=== PATIENT | female | born 1985 | race Caucasian/White ===

== ENCOUNTER 2022-10-15 04:22 | Day surgery (SDC) | payer OTHER ==
--- NOTE | 2022-10-15 04:56 | ED Physician Documentation ---
History of Present Illness - Stated complaint Stated Complaint: NAUSEA,FEVER,CRAMPING - Chief complaint Chief Complaint: Abd Pain - History obtained from History obtained from: Patient - History of Present Illness Timing: Enter time (03:30), Today Pain level now: 6 Improved by: no ameliorating factors Worsened by: no exacerbating factors - Additonal information Additional information: woke from sleep approximately 3:30 this morning with suprapubic cramping pain, waxing and waning without exacerbating or ameliorating factors. She denies h/of similar symptoms. She is approximately 4 weeks , primagravida. Denies vaginal bleeding. Had near-syncopal episode at home [employer] with lightheadedness, diaphoresis, generalized weakness, felt like she was going to pass out. She arrives by private vehicle (was driven to ED) Review of Systems Constitutional: reports: Sweats. denies: Fever, Chills Cardiac: reports: Reviewed and negative Respiratory: reports: Reviewed and negative GI: reports: Abdominal Pain, Nausea, Vomiting : reports: Now EGA (4 weeks). denies: Dysuria, Frequency, Vaginal bleeding PD PAST MEDICAL HISTORY - Past Medical History Past Medical History: No - Past Surgical History Past Surgical History: Yes HEENT: Tonsil/Adenoidectomy - Present Medications Home Medications: Ambulatory Orders Medication Instructions Recorded Confirmed Vit No.130/Iron/Folic 1 tab PO DAILY 10/15/22 10/15/22 [ Tablet] - Allergies Allergies/Adverse Reactions: Allergies Allergy/AdvReac Type Severity Reaction Status Date / Time No Known Drug Allergies Allergy Verified 10/15/22 04:41 - Social History Does the pt smoke?: No Smoking Status: Never smoker Does the pt drink ETOH?: No Does the pt have substance abuse?: No - Immunizations Immunizations are current?: Yes - POLST Patient has POLST: No PD ED PE NORMAL - Vitals Vital signs reviewed: Yes - General General: Alert and oriented X 3, Well developed/nourished, Other (appears apprehensive) - HEENT HEENT: Moist mucous membranes - Cardiac Cardiac: RRR, No murmur - Respiratory Respiratory: No respiratory distress, Clear bilaterally - Abdomen Abdomen: Soft, Non distended, Other (TTP across lower abdomen) - Back Back: No CVA TTP - Derm Derm: Normal color, Warm and dry Results - Vitals Vitals: Vital Signs - 24 hr 10/15/22 10/15/22 10/15/22 04:35 05:16 06:30 Temperature 36.6 C 36.8 C Heart Rate 72 66 67 Respiratory 20 16 18 Rate Blood Pressure 103/81 H 111/87 H 114/79 O2 Saturation 100 100 100 Oxygen O2 Source Room air - Labs Labs: Laboratory Tests 10/15/22 10/15/22 10/15/22 04:55 04:55 04:55 WBC 7.8 RBC 4.25 Hgb 12.5 Hct 38.0 MCV 89.4 MCH 29.4 MCHC 32.9 RDW 13.5 Plt Count 252 MPV 11.7 H Neut # (Auto) 5.2 Lymph # (Auto) 1.9 [place] # (Auto) 0.4 Eos # (Auto) 0.2 Baso # (Auto) 0.1 Absolute Nucleated RBC 0.00 Nucleated RBC % 0.0 Sodium 135 Potassium 3.4 L Chloride 100 L Carbon Dioxide 23 Anion Gap 12.0 BUN 13 Creatinine 0.7 Estimated GFR (MDRD) 95 Glucose 143 H Calcium 9.3 Total Bilirubin 0.6 AST 16 ALT 16 Alkaline Phosphatase 49 Total Protein 7.8 Albumin 4.1 Globulin 3.7 Albumin/Globulin Ratio 1.1 Lipase 40 HCG, Quant 82413.00 SARS-CoV-2 (PCR) Blood Type Blood Type Recheck Antibody Screen Crossmatch IS Only 10/15/22 10/15/22 10/15/22 07:09 07:09 07:38 WBC RBC Hgb 11.6 L Hct 34.3 L MCV MCH MCHC RDW Plt Count MPV Neut # (Auto) Lymph # (Auto) [place] # (Auto) Eos # (Auto) Baso # (Auto) Absolute Nucleated RBC Nucleated RBC % Sodium Potassium Chloride Carbon Dioxide Anion Gap BUN Creatinine Estimated GFR (MDRD) Glucose Calcium Total Bilirubin AST ALT Alkaline Phosphatase Total Protein Albumin Globulin Albumin/Globulin Ratio Lipase HCG, Quant SARS-CoV-2 (PCR) NOT DETECTED Blood Type A POSITIVE Blood Type Recheck Antibody Screen NEGATIVE Crossmatch IS Only See Detail 10/15/22 07:49 WBC RBC Hgb Hct MCV MCH MCHC RDW Plt Count MPV Neut # (Auto) Lymph # (Auto) [place] # (Auto) Eos # (Auto) Baso # (Auto) Absolute Nucleated RBC Nucleated RBC % Sodium Potassium Chloride Carbon Dioxide Anion Gap BUN Creatinine Estimated GFR (MDRD) Glucose Calcium Total Bilirubin AST ALT Alkaline Phosphatase Total Protein Albumin Globulin Albumin/Globulin Ratio Lipase HCG, Quant SARS-CoV-2 (PCR) Blood Type Blood Type Recheck A POSITIVE Antibody Screen Crossmatch IS Only - Rads (name of study) first trimester US Radiology: Prelim report reviewed, See rad report PD MEDICAL DECISION MAKING - ED course Complexity details: reviewed results, re-evaluated patient, considered differential, d/w patient ED course: Serum HCG is over 32,000 but no IUP seen on ultrasound. Ultrasound does show free fluid in upper quadrants and probably blood within pelvis, findings are worrisome for ectopic . I discussed these results with Dr. Cristina, will take patient to OR. Patient is type/crossed for two units PRBC. - Critical Care Time(min): 45 Time Includes: Direct patient care, Reassess patient, Document care, Coordinate care, Medical consult, See progress note Data interpretation: Labs, See progress note Procedures included in critical care time: See progress note Procedures excluded from critical care time: See progress note Departure - Departure Disposition: ED Transfer to [facility] Clinical Impression: Ectopic Qualifiers: Location of ectopic : unspecified location Intrauterine status: without intrauterine Qualified Code(s): O00.90 - Unspecified ectopic without intrauterine Condition: Fair Discharge Date/Time: 10/15/22 08:00
[2022-10-15 05:08] LABS: BASOPHILS # (AUTO) 0.1 10^3/uL (0.0-0.1); BASOPHILS % (AUTO) 0.9 %; EOSINOPHILS # (AUTO) 0.2 10^3/uL (0.0-0.7); EOSINOPHILS % (AUTO) 2.1 %; HGB - HEMOGLOBIN 12.5 g/dL (12.0-16.0); LYMPHOCYTES # (AUTO) 1.9 10^3/uL (1.5-3.5); LYMPHOCYTES % (AUTO) 24.1 %; MEAN CORPUSCULAR HEMOGLOBIN 29.4 pg (27.0-31.0); MEAN CORPUSCULAR HGB CONC 32.9 g/dL (32.0-36.0); MEAN CORPUSCULAR VOLUME 89.4 fL (81.0-99.0); MEAN PLATELET VOLUME 11.7 fL (7.9-10.8); MONOCYTES # (AUTO) 0.4 10^3/uL (0.0-1.0); MONOCYTES % (AUTO) 5.7 %; NEUTROPHILS # (AUTO) 5.2 10^3/uL (1.5-6.6); NEUTROPHILS % (AUTO) 66.8 %; PLT - PLATELET COUNT 252 10^3/uL (130-450); RED BLOOD COUNT 4.25 10^6/uL (4.20-5.40); RED CELL DISTRIBUTION WIDTH 13.5 % (12.0-15.0); WHITE BLOOD COUNT 7.8 x10^3/uL (4.8-10.8)
[2022-10-15] MEDS ORDERED: ACETAMINOPHEN 1,000 MG/100 ML 1,000 MG/100 ML BAG IV STA (05:13)
[2022-10-15 05:21] LABS: ALBUMIN 4.1 g/dL (3.2-5.5); ALBUMIN/GLOBULIN RATIO 1.1 (1.0-2.2); BILIRUBIN,TOTAL 0.6 mg/dL (0.2-1.0); CALCIUM 9.3 mg/dL (8.5-10.3); CREATININE 0.7 mg/dL (0.4-1.0); POTASSIUM 3.4 mmol/L (3.5-5.0); TOTAL PROTEIN 7.8 g/dL (6.7-8.2)
[2022-10-15] MEDS ORDERED: SODIUM CHLORIDE 0.9% 1,000 ML IV STA ×2 (05:29→05:33)
[2022-10-15] MEDS ORDERED: ONDANSETRON 4 MG/2 ML VIAL IVP STA ×2 (05:30→05:33)
[2022-10-15] MEDS ORDERED: ONDANSETRON 4 MG/2 ML VIAL ONE ×2 (05:32→13:01)
[2022-10-15] MEDS ORDERED: LIDOCAINE MPF 2%-EPI 1:200000 20 ML VIAL ONE (07:16)
[2022-10-15] MEDS ORDERED: BUPIVACAINE 0.25% PF 10 ML VIAL ONE (07:17)
[2022-10-15] MEDS ORDERED: PROPOFOL 200 MG/20 ML VIAL IVP ONE (07:24)
[2022-10-15] MEDS ORDERED: ROCURONIUM 50 MG/5 ML VIAL ONE ×2 (07:25→08:32)
[2022-10-15] MEDS ORDERED: MIDAZOLAM 2 MG/2 ML VIAL ONE (07:26)
[2022-10-15] MEDS ORDERED: CEFAZOLIN 2G/50ML 0.9% NS 2 GM/50 ML BAG IV ONE (07:34)
--- NOTE | 2022-10-15 07:37 | HISTORY & PHYSICAL EXAMINATION ---
HPI - Admitted From Admitted from: ED - History Obtained From History obtained from: Patient Exam limitations: Clinical condition - History of Present Illness Severity at the worst: reports: Severe Pain Quality: reports: Sharp, Aching, Cramping Timing: reports: Abrupt onset Duration: reports: Hours: (4) Improved with: reports: Nothing Worsened by: reports: Movement HPI Comment/Other: 37yo ~4w by LMP 09/11/22 presented to ED this morning with her maddie Valdovinos after severe pain waking her from sleep ~0300. HCG 38,291. Verbal US report shows no IUP and hemoperitoneum. NKDA Meds: prenatals Med: denies Surg: wisdom, tonsils Fam: noncontributory Social: , self and AD, denies ENMANUEL PMH/PSH - Past Medical History MRSA Hx?: No - Past Surgical History HEENT: positive: Tonsil/Adenoidectomy Social & Family Hx - Living Situation Living Arrangement: At home Living Situation: With spouse/s.o. - Social History Does the pt smoke?: No Smoking Status: Never smoker Does the pt drink ETOH?: No Does the pt have substance abuse?: No - POLST Patient has POLST: No Meds/Allgy - Home Medications Home Medications: Ambulatory Orders Medication Instructions Recorded Confirmed Vit No.130/Iron/Folic 1 tab PO DAILY 10/15/22 10/15/22 [ Tablet] - Allergies Allergies/Adverse Reactions: Allergies Allergy/AdvReac Type Severity Reaction Status Date / Time No Known Drug Allergies Allergy Verified 10/15/22 04:41 Review of Systems - Gastrointestinal Gastrointestinal: reports: Abdominal pain - All Other Systems All Other Systems: reports: Reviewed and negative Exam - Vital Signs Reviewed Vital Signs: Yes Vital Signs: Vital Signs x48h Temp Pulse Resp BP Pulse Ox 10/15/22 06:30 98.2 F 67 18 114/79 100 10/15/22 05:16 66 16 111/87 H 100 10/15/22 04:35 97.8 F 72 20 103/81 H 100 - Physical Exam General Appearance: positive: No acute distress Abdomen: positive: Tenderness, Guarding, Rebound Skin: positive: Color nml Extremities: positive: Non-tender Neurologic/Psychiatric: positive: Oriented x3 Results - Lab Results Fish Bones: 10/15/22 04:55 10/15/22 04:55 Other Lab Results: Lab Results x24hrs 10/15/22 10/15/22 10/15/22 Range/Units 04:55 04:55 04:55 WBC 7.8 (4.8-10.8) x10^3/uL RBC 4.25 (4.20-5.40) 10^6/uL Hgb 12.5 (12.0-16.0) g/dL Hct 38.0 (37.0-47.0) % MCV 89.4 (81.0-99.0) fL MCH 29.4 (27.0-31.0) pg MCHC 32.9 (32.0-36.0) g/dL RDW 13.5 (12.0-15.0) % Plt Count 252 (130-450) 10^3/uL MPV 11.7 H (7.9-10.8) fL Neut # (Auto) 5.2 (1.5-6.6) 10^3/uL Lymph # (Auto) 1.9 (1.5-3.5) 10^3/uL [place] # (Auto) 0.4 (0.0-1.0) 10^3/uL Eos # (Auto) 0.2 (0.0-0.7) 10^3/uL Baso # (Auto) 0.1 (0.0-0.1) 10^3/uL Absolute Nucleated RBC 0.00 x10^3/uL Nucleated RBC % 0.0 /100WBC Sodium 135 (135-145) mmol/L Potassium 3.4 L (3.5-5.0) mmol/L Chloride 100 L (101-111) mmol/L Carbon Dioxide 23 (21-32) mmol/L Anion Gap 12.0 (6-13) BUN 13 (6-20) mg/dL Creatinine 0.7 (0.4-1.0) mg/dL Estimated GFR (MDRD) 95 (>89) Glucose 143 H (70-100) mg/dL Calcium 9.3 (8.5-10.3) mg/dL Total Bilirubin 0.6 (0.2-1.0) mg/dL AST 16 (10-42) IU/L ALT 16 (10-60) IU/L Alkaline Phosphatase 49 (42-121) IU/L Total Protein 7.8 (6.7-8.2) g/dL Albumin 4.1 (3.2-5.5) g/dL Globulin 3.7 (2.1-4.2) g/dL Albumin/Globulin Ratio 1.1 (1.0-2.2) Lipase 40 (22-51) U/L HCG, Quant 50842.00 mIU/mL - Diagnostic Imaging Results Diagnostic Imaging Results Comments: Hemoperitoneum, no IUP Impression/Plan - Problem List Problem List: 37yo with right sided ectopic , ruptured, hemoperitoneum - To OR for laparopscopy, informed consent obtained - Plan for outpatient surgery
[2022-10-15 07:43] LABS: HCT - HEMATOCRIT 34.3 % (37.0-47.0); HGB - HEMOGLOBIN 11.6 g/dL (12.0-16.0)
[2022-10-15] MEDS ORDERED: fentaNYL 100 MCG/2 ML VIAL ONE ×2 (07:43→08:31)
--- NOTE | 2022-10-15 07:48 | ANESTHESIA ---
Pre-Anesthesia VS, & Labs - Diagnosis ectopic - Procedure treatment of ectopic , laparoscopic Vital Signs: Temp Pulse Resp BP Pulse Ox O2 Flow Rate 36.8 C 67 18 114/79 100 10/15/22 06:30 10/15/22 06:30 10/15/22 06:30 10/15/22 06:30 10/15/22 06:30 Height: 5 ft 11 in Weight (kg): 81.647 kg Body Mass Index: 25.1 BMI Classification: Overweight - NPO >8 hours - Is Patient ?: Yes - Lab Results Current Lab Results: Laboratory Tests 10/15/22 04:55: HCG, Quant 42352.00 10/15/22 04:55: Sodium 135, Potassium 3.4 L, Chloride 100 L, Carbon Dioxide 23, Anion Gap 12.0, BUN 13, Creatinine 0.7, Estimated GFR (MDRD) 95, Glucose 143 H, Calcium 9.3, Total Bilirubin 0.6, AST 16, ALT 16, Alkaline Phosphatase 49, Total Protein 7.8, Albumin 4.1, Globulin 3.7, Albumin/Globulin Ratio 1.1, Lipase 40 10/15/22 04:55: WBC 7.8, RBC 4.25, Hgb 12.5, Hct 38.0, MCV 89.4, MCH 29.4, MCHC 32.9, RDW 13.5, Plt Count 252, MPV 11.7 H, Neut # (Auto) 5.2, Lymph # (Auto) 1.9, [place] # (Auto) 0.4, Eos # (Auto) 0.2, Baso # (Auto) 0.1, Absolute Nucleated RBC 0.00, Nucleated RBC % 0.0 Fish Bones: 10/15/22 04:55 10/15/22 04:55 Home Medications and Allergies Home Medications: Ambulatory Orders Vit No.130/Iron/Folic [ Tablet] 1 tab PO DAILY 10/15/22 Active Medications Cefazolin/Sodium Chloride (Ancef 2 Grams/50ml) 2 gm in 50 mls @ 100 mls/hr IV ONCE ONE Stop: 10/15/22 08:03 Vit No.130/Iron/Folic [ Tablet] 1 tab PO DAILY 10/15/22 Allergies/Adverse Reactions: Allergies Allergy/AdvReac Type Severity Reaction Status Date / Time No Known Drug Allergies Allergy Verified 10/15/22 04:41 Anes History & Medical History - Anesthetic History Anesthesia Complications: reports: No previous complications - Medical History Cardiovascular: reports: None Pulmonary: reports: None Smoking Status: Never smoker - Surgical History Eyes Ears Nose Throat (EENT): reports: Tonsil/Adenoidectomy Exam General: Alert, Oriented x3, Moderate distress Dental: WNL Mouth Opening: Greater than 4 Fingerbreadths Neck Mobility: Normal Mallampati classification: I Thyromental Distance: greater than 6 cm Respiratory: Lungs clear Cardiovascular: Regular rate Plan Anesthesia Type: General Consent for Procedure(s) Verified and Reviewed: Yes Code Status: Attempt Resuscitation ASA classification: 2-Mild systemic disease Is this case an emergency?: Yes
[2022-10-15] MEDS ORDERED: MORPHINE 2 MG/ML CARPUJECT IVP PRN (07:49)
[2022-10-15] MEDS ORDERED: HYDROmorphone 0.5 MG/0.5 ML SYRINGE IVP PRN (07:49)
[2022-10-15] MEDS ORDERED: ePHEDrine 50 MG/ML VIAL IVP PRN (07:49)
[2022-10-15] MEDS ORDERED: fentaNYL 100 MCG/2 ML VIAL IVP PRN (07:49)
[2022-10-15] MEDS ORDERED: ONDANSETRON 4 MG/2 ML VIAL IVP PRN ×2 (07:49→10:04)
[2022-10-15] MEDS ORDERED: ATROPINE ABBOJECT 1 MG/10 ML SYRINGE IVP PRN (07:49)
[2022-10-15] MEDS ORDERED: NALOXONE 0.4 MG/ML VIAL IVP PRN (07:49)
[2022-10-15] MEDS ORDERED: METOCLOPRAMIDE 10 MG/2 ML VIAL IVP PRN (07:49)
[2022-10-15] MEDS ORDERED: LACTATED RINGERS 1,000 ML IV SCH (08:00)
[2022-10-15] MEDS ORDERED: KETOROLAC 30 MG/ML VIAL ONE (08:10)
[2022-10-15] MEDS ORDERED: BUPIVACAINE 0.25%-EPI 1:200000 PF 30 ML VIAL SUBQ ONE ×2 (08:31)
[2022-10-15] MEDS ORDERED: ceFAZolin 1 GM VIAL ONE (09:05)
[2022-10-15] MEDS ORDERED: HYDROmorphone 1 MG/ML CARPUJECT ONE (09:28)
[2022-10-15] MEDS ORDERED: LACTATED RINGERS 1,000 ML IV ONE (09:57)
[2022-10-15] MEDS ORDERED: ACETAMINOPHEN 1,000 MG/100 ML 1,000 MG/100 ML BAG IV ONE ×2 (10:09→11:45)
--- NOTE | 2022-10-15 10:12 | OPERATIVE REPORT ---
Operative Report - General Procedure Date: 10/15/22 Planned Procedure: Laparoscopic removal of ectopic Pre-Op Diagnosis: Right adnexal ectopic Procedure Performed: Laparoscopic right salpingectomy with removal of ectopic Post Op Diagnosis: Right tubal ectopic - Procedure Note Primary Surgeon: Lisa Griffith DO Secondary Surgeon: Brianna Sung NP; assistance required for retraction, safe completion Anesthesia Provider: Kathie Longo CRNA Anesthesia Technique: General ET tube Pathology: Right oviduct with ectopic Estimated Blood Loss (mL): 50 (Hemoperitoneum 1000cc) Urine Output (mL): 125 Indications: Right adnexal ectopic Findings: Large hemoperitoneum ~1000cc Normal ovaries and uterus Normal left oviduct Right oviduct dilated and ruptured, bleeding Complications: None - Other Other Information/Narrative: Patient taken to OR where GETA obtained without difficulty. Placed in dorsal lithotomy position and prepped and draped in sterile fashion. [place] speculum placed in vagina and hulka uterine manipulator placed. Speculum removed. Attention then turned to abdomen where 10mm vertical skin incision made in umbilical fold. Veress needle carefully introduced into peritoneal cavity. Intraperitoneal placement confirmed with drop test and drop in intraabdominal pressure with CO2 gas insufflation. Trocar and sleeve advanced without difficulty into abdomen where intraabdominal placement confirmed with laparoscope. Two additional 5mm incisions made in pelvis bilaterally and trocars introduced under direct visualization. 0.25% bupivacaine injection prior to skin incisions x3. Aforementioned findings noted. Right fallopian tube grasped and LigaSure device used for transection along mesosalpinx up to uterine cornu. Tube placed in endocatch bag and removed through 10mm port. Omental adhesion right abdomen noted and taken down with LigaSure. Hemostasis. Abdomen and pelvic copiously irrigated until majority of hemoperitoneum evacuated. Hemostasis at all dissection sites. Minh Tomason used to close 10mm umbilical incision with 0-Vicryl. Bilateral trocars removed under direct visualization. Pneumoperitoneum released. Incisions x3 were closed with dermabond. Hulka removed and vagina hemostatic. [place] catheter removed. Sponge, lap, needle, and instrument counts were correct x2. Patient taken to PACU in stable condition.
[2022-10-15] MEDS: HYDROmorphone 1 MG/ML CARPUJECT ONE ×2 (10:16→10:28)
[2022-10-15] MEDS: fentaNYL 100 MCG/2 ML VIAL ONE ×2 (10:38→10:56)
[2022-10-15] MEDS ORDERED: traMADol 50 MG TABLET PO SCH ×2 (11:00→16:00)
--- NOTE | 2022-10-15 11:01 | Ultrasound Report ---
PROCEDURE: OB First Trimester INDICATIONS: vaginal bleeding , first trimester OUTSIDE/PRIOR DATING DATA: Last menstrual period (LMP): 09/11/2022. LMP-based estimated date of delivery (RYAN): 06/18/2023. First dating scan (date and location): 10/15/2022. Estimated date of delivery (RYAN) from first dating scan: Not applicable. Real-time scanning was performed of the fetus and maternal pelvic organs, with image documentation. COMPARISON: None FINDINGS: There is no visualized intrauterine identified. While there is no definitively identified e xtrauterine gestational sac or pole, it is noted that there is moderate heterogeneous echogenic material within the right and left upper quadrants as well as pelvis. Maternal organs: Ovaries are not fully visualized bilaterally. IMPRESSION: No intrauterine is identified. However, there is notable heterogeneous echogenicity within the upper quadrants as well as lower pelvis highly suspicious for complex fluid such as hemorrhage. G iven the beta hCG level, lack of intrauterine and suspected hemorrhage in the pelvis, suspi cion is very high for ectopic/ruptured ectopic . The above findings are concordant with preliminary report. Reviewed by: Radha Peterson MD on 10/15/2022 10:59 AM PST Approved by: Radha Peterson MD on 10/15/2022 10:59 AM PST Station ID: [id number]
--- NOTE | 2022-10-15 11:37 | ANESTHESIA POST OP EVALUATION ---
Anesthesia Post Eval - Post Anesthesia Eval Vitals: Last Vital Signs Temp 37.1 C 10/15/22 11:05 Pulse 79 10/15/22 11:18 Resp 15 10/15/22 11:18 BP 122/84 H 10/15/22 11:18 Pulse Ox 100 10/15/22 11:18 O2 Flow Rate CV Function Including HR & BP: Stable Pain Control: Satisfactory Nausea & Vomiting: Negative Mental Status: Baseline Respiratory Status: Airway Patent Hydration Status: Satisfactory Anesthesia Complications: None
[2022-10-15] MEDS ORDERED: traMADol 50 MG TABLET PO ONE (12:39)
[2022-10-15] MEDS: KETOROLAC 30 MG/ML VIAL IVP SCH ×2 (14:50→20:51)
[2022-10-15] MEDS: oxyCODONE 5 MG TABLET PO PRN ×3 (15:50→23:30)
[2022-10-15] MEDS: LACTATED RINGERS 1,000 ML IV SCH ×2 (15:50→23:35)
[2022-10-15] MEDS ORDERED: HYDROmorphone 1 MG/ML CARPUJECT IVP PRN (16:12)
[2022-10-15] MEDS: SIMETHICONE CHEW 80 MG TABLET PO SCH ×2 (16:36→21:43)
[2022-10-15] MEDS: ACETAMINOPHEN 500 MG TABLET PO SCH (18:04)
[2022-10-15] MEDS ORDERED: hydrOXYzine PAMOATE 25 MG CAPSULE PO PRN (18:05)
[2022-10-15] MEDS ORDERED: ZOLPIDEM 5 MG TABLET PO PRN (18:06)
[2022-10-16] MEDS: IBUPROFEN 800 MG TABLET PO SCH ×3 (02:51→15:14)
[2022-10-16] MEDS: oxyCODONE 5 MG TABLET PO PRN ×3 (03:20→12:36)
[2022-10-16 06:02] LABS: BASOPHILS % (AUTO) 0.3 %; EOSINOPHILS % (AUTO) 0.1 %; HCT - HEMATOCRIT 20.5 % (37.0-47.0); LYMPHOCYTES # (AUTO) 1.3 10^3/uL (1.5-3.5); LYMPHOCYTES % (AUTO) 13.5 %; MEAN CORPUSCULAR HEMOGLOBIN 30.5 pg (27.0-31.0); MEAN CORPUSCULAR HGB CONC 33.2 g/dL (32.0-36.0); MEAN CORPUSCULAR VOLUME 91.9 fL (81.0-99.0); MEAN PLATELET VOLUME 11.5 fL (7.9-10.8); MONOCYTES # (AUTO) 0.6 10^3/uL (0.0-1.0); MONOCYTES % (AUTO) 6.3 %; NEUTROPHILS # (AUTO) 7.6 10^3/uL (1.5-6.6); NEUTROPHILS % (AUTO) 79.5 %; PLT - PLATELET COUNT 173 10^3/uL (130-450); RED BLOOD COUNT 2.23 10^6/uL (4.20-5.40); RED CELL DISTRIBUTION WIDTH 13.7 % (12.0-15.0); WHITE BLOOD COUNT 9.6 x10^3/uL (4.8-10.8)
[2022-10-16] MEDS: ACETAMINOPHEN 500 MG TABLET PO SCH ×3 (06:04→12:36)
[2022-10-16 06:08] LABS: HGB - HEMOGLOBIN 6.8 g/dL (12.0-16.0)
[2022-10-16 06:11] LABS: ALBUMIN/GLOBULIN RATIO 1.2 (1.0-2.2); BILIRUBIN,TOTAL 0.4 mg/dL (0.2-1.0); CALCIUM 8.4 mg/dL (8.5-10.3); CREATININE 0.5 mg/dL (0.4-1.0); POTASSIUM 3.7 mmol/L (3.5-5.0); TOTAL PROTEIN 5.5 g/dL (6.7-8.2)
[2022-10-16] MEDS: SIMETHICONE CHEW 80 MG TABLET PO SCH ×2 (07:55→13:19)
[2022-10-16] MEDS ORDERED: IRON DEXTRAN 1,000 MG in SODIUM CHLORIDE 0.9% 250 ML IV ONE (09:30)
[2022-10-16 09:53] LABS: HCT - HEMATOCRIT 20.3 % (37.0-47.0); MEAN CORPUSCULAR HEMOGLOBIN 29.9 pg (27.0-31.0); MEAN CORPUSCULAR HGB CONC 32.5 g/dL (32.0-36.0); MEAN CORPUSCULAR VOLUME 91.9 fL (81.0-99.0); MEAN PLATELET VOLUME 11.4 fL (7.9-10.8); RED BLOOD COUNT 2.21 10^6/uL (4.20-5.40); RED CELL DISTRIBUTION WIDTH 13.9 % (12.0-15.0); WHITE BLOOD COUNT 8.8 x10^3/uL (4.8-10.8)
[2022-10-16 09:57] LABS: HGB - HEMOGLOBIN 6.6 g/dL (12.0-16.0)
--- NOTE | 2022-10-16 15:11 | DISCHARGE SUMMARY ---
"Discharge Summary Admit Date: 10/15/22 Discharge Date: 10/16/22 Discharging Provider: Lisa Griffith DO Code Status: Attempt Resuscitation Condition at Discharge: Good Discharge Disposition: 01 Home, Self Care Discharge Facility Name: - DIAGNOSES Admission Diagnoses: Right adnexal ectopic - HPI History of Present Illness: 37yo presented to ED for acute abdominal pain, ~4w by LMP, diagnosed with right adnexal ectopic . - CONSULTS | PROCEDURES Consultations: Anesthesia Procedures: Laparoscopic right salpingectomy - HOSPITAL COURSE Hospital Course: 37yo presented to ED for acute abdominal pain, ~4w by LMP, diagnosed with right adnexal ectopic . HCG 38,291. US with no IUP and hemoperitoneum. She was taken emergently to OR for laparoscopic right salpingec alex. Stayed overnight for monitoring and pain control. VSS, exam benign. Hgb 6.8 POD#1. SHe was not lightheaded or dizzy, ambulating well. We discussed iron infusion and/or blood transfusion. She opted for iron infusion, which she tolerated well. Otherwise recovering appropriately. Post-operative precautions reviewed. Recommend 2 weeks convalescence. She may follow up with me at [facility]. - ALLERGIES Allergies/Adverse Reactions: Allergies Allergy/AdvReac Type Severity Reaction Status Date / Time hydroxyzine [From Vistaril] AdvReac Itching Verified 10/16/22 03:30 nickel AdvReac Itching Verified 10/16/22 07:32 - MEDICATIONS Home Medications: Ambulatory Orders Medication Instructions Recorded Confirmed Vit No.130/Iron/Folic 1 tab PO DAILY 10/15/22 10/15/22 [ Tablet] - PHYSICAL EXAM AT DISCHARGE General Appearance: positive: No acute distress Eyes Bilateral: positive: EOMI Respiratory: positive: No respiratory distress Abdomen: positive: Other (Appropriately tender, incisions intact, some bruising noted) Skin: positive: Color nml Extremities: positive: Non-tender Neurologic/Psychiatric: positive: Oriented x3 - LABS Result Diagrams: 10/16/22 09:47 10/16/22 05:53 - DIAGNOSTIC IMAGING Diagnostic Imaging Results: Final report reviewed - QUALITY (Female Hip Fx Only) Was patient sent home on osteoporosis medication?: No - FOLLOW UP Follow Up: 1 week - TIME SPENT Time Spent in Discharge (Minutes): 30"
[2022-10-16 15:50] VITALS: BP 122/64
== END 2022-10-16 15:35 | disposition home or self-care (01) ==
LOC: ED 04:22 → SDS 07:18 → FBP 13:59 → SDS 10-16 15:35
PROVIDERS: ATTEND Obstetrics & Gynecology
PROC: 0UT54ZZ Resection of Right Fallopian Tube, Percutaneous Endoscopic Approach (ICD-10-PCS; 2022-10-15)
PROC: 10T24ZZ Resection of Products of Conception, Ectopic, Percutaneous Endoscopic Approach (ICD-10-PCS; principal; 2022-10-15 07:30)
DX: O00.101 Right tubal pregnancy without intrauterine pregnancy (principal); K66.1 Hemoperitoneum; Z20.822 Contact with and (suspected) exposure to COVID-19
CPT/HCPCS: 36415; 59151; 76801; 80053; 83690; 84702; 85014; 85018; 85025; 85027; 86850; 86900; 86901; 86920; 87635; 96361; 96365; 96375; 99285; 99291; A9270; J0131; J1170; J1750; J7120

== ENCOUNTER 2022-10-22 14:32 | Outpatient (CLI) | payer OTHER ==
[2022-10-22 14:49] LABS: HCT - HEMATOCRIT 27.2 % (37.0-47.0); HGB - HEMOGLOBIN 8.7 g/dL (12.0-16.0); MEAN CORPUSCULAR HEMOGLOBIN 30.3 pg (27.0-31.0); MEAN CORPUSCULAR VOLUME 94.8 fL (81.0-99.0); MEAN PLATELET VOLUME 10.3 fL (7.9-10.8); RED BLOOD COUNT 2.87 10^6/uL (4.20-5.40); RED CELL DISTRIBUTION WIDTH 15.9 % (12.0-15.0); WHITE BLOOD COUNT 6.4 x10^3/uL (4.8-10.8)
== END 2022-10-22 14:33 | disposition home or self-care (01) ==
LOC: LAB 14:32
PROVIDERS: ATTEND Obstetrics & Gynecology
DX: D62 Acute posthemorrhagic anemia (principal); Z87.59 Personal history of other complications of pregnancy, childbirth and the puerperium
CPT/HCPCS: 36415; 84702; 85027

== ENCOUNTER 2022-11-13 13:03 | Outpatient (CLI) | payer OTHER ==
[2022-11-13 13:49] LABS: HCT - HEMATOCRIT 35.8 % (37.0-47.0); HGB - HEMOGLOBIN 11.7 g/dL (12.0-16.0); MEAN CORPUSCULAR HEMOGLOBIN 31.5 pg (27.0-31.0); MEAN CORPUSCULAR HGB CONC 32.7 g/dL (32.0-36.0); MEAN CORPUSCULAR VOLUME 96.2 fL (81.0-99.0); MEAN PLATELET VOLUME 11.1 fL (7.9-10.8); RED BLOOD COUNT 3.72 10^6/uL (4.20-5.40); RED CELL DISTRIBUTION WIDTH 13.8 % (12.0-15.0); WHITE BLOOD COUNT 6.5 x10^3/uL (4.8-10.8)
[2022-11-13 14:50] LABS: BILIRUBIN,URINE NEGATIVE (NEGATIVE); GLUCOSE, URINE (UA) NEGATIVE (NEGATIVE); KETONES,URINE (UA) NEGATIVE (NEGATIVE); LEUKOCYTE ESTERASE, URINE NEGATIVE (NEGATIVE); NITRITE,URINE NEGATIVE (NEGATIVE); OCCULT BLOOD,URINE NEGATIVE (NEGATIVE); PROTEIN,URINE NEGATIVE (NEGATIVE); UROBILINOGEN,URINE 0.2 (NORMAL) E.U./dL (NORMAL)
[2022-11-13 14:51] LABS: CLARITY,URINE CLEAR (CLEAR)
[2022-11-13 16:18] LABS: BACTERIA,URINE Few /HPF (None Seen); RBC,URINE None Seen /HPF (0-5); SQUAMOUS EPITHELIAL CELL,UR FEW Squamous (<= Few); WBC,URINE 0-3 /HPF (0-5)
== END 2022-11-13 13:04 | disposition home or self-care (01) ==
LOC: LAB 13:03
PROVIDERS: ATTEND Obstetrics & Gynecology
DX: D62 Acute posthemorrhagic anemia (principal); R30.0 Dysuria; Z87.59 Personal history of other complications of pregnancy, childbirth and the puerperium
CPT/HCPCS: 36415; 81001; 84702; 85027; 87086

== ENCOUNTER 2023-11-19 11:26 | Outpatient (CLI) | payer OTHER ==
[2023-11-19 18:28] LABS: THYROID STIMULATING HORMONE 3.95 uIU/mL (0.34-5.60)
[2023-11-19 18:34] LABS: PROLACTIN 11.38 ng/mL
== END 2023-11-19 11:27 | disposition home or self-care (01) ==
LOC: LAB.N 11:26
PROVIDERS: ATTEND Obstetrics & Gynecology
DX: L68.0 Hirsutism (principal); N93.9 Abnormal uterine and vaginal bleeding, unspecified
CPT/HCPCS: 36415; 82397; 83001; 83498; 84144; 84146; 84403; 84443

== ENCOUNTER 2024-04-16 08:00 | Outpatient (CLI) | payer OTHER ==
[2024-04-16 18:40] LABS: BILIRUBIN,URINE NEGATIVE (NEGATIVE); GLUCOSE, URINE (UA) NEGATIVE (NEGATIVE); KETONES,URINE (UA) NEGATIVE (NEGATIVE); LEUKOCYTE ESTERASE, URINE NEGATIVE (NEGATIVE); NITRITE,URINE NEGATIVE (NEGATIVE); OCCULT BLOOD,URINE NEGATIVE (NEGATIVE); PH,URINE 6.5 PH (5.0-7.5); PROTEIN,URINE NEGATIVE (NEGATIVE); UROBILINOGEN,URINE 0.2 (NORMAL) E.U./dL (NORMAL)
[2024-04-16 18:46] LABS: CLARITY,URINE CLEAR (CLEAR)
[2024-04-16 18:47] LABS: BACTERIA,URINE Moderate /HPF (None Seen); RBC,URINE None Seen /HPF (0-5); SQUAMOUS EPITHELIAL CELL,UR MOD Squamous (<= Few); WBC,URINE 0-3 /HPF (0-5)
== END 2024-04-16 23:59 | disposition home or self-care (01) ==
LOC: LAB.WC 08:00
PROVIDERS: ATTEND Obstetrics & Gynecology
DX: Z34.00 Encounter for supervision of normal first pregnancy, unspecified trimester (principal)
CPT/HCPCS: 81001; 87086

== ENCOUNTER 2024-04-26 07:37 | Outpatient (CLI) | payer OTHER ==
--- NOTE | 2024-04-26 18:01 | Ultrasound Report ---
PROCEDURE: OB 1st Trimester w/TV INDICATIONS: POSITIVE TEST OUTSIDE/PRIOR DATING DATA: Last menstrual period (LMP): 02/29/2024. LMP-based estimated date of delivery (RYAN): 12/05/2024. First dating scan (date and location): Today. RYAN 12/10/2024 TECHNIQUE: Real-time scanning was performed of the fetus and maternal pelvic organs, with image documentation. Endovaginal scanning was also performed to better visualize the fetus and maternal ovaries. COMPARISON: None. FINDINGS: Intrauterine gestational sac. pole measures 1.23 cm, with ultrasound age of 7 weeks a nd 3 days. heart motion is detected at a rate of 140 bpm. Incidentally noted trace free fluid seen in the posterior cul-de-sac. There is a left corpus luteum cyst. Yolk sac is present. IMPRESSION: Living intrauterine gestation at an ultrasound age of 7 weeks and 3 days. Incidentally noted trace free fluid in the posterior cul-de-sac. Reviewed by: Mike Melgar MD on 04/26/2024 5:59 PM PDT Approved by: Mike Melgar MD on 04/26/2024 5:59 PM PDT Station ID: [id number]
== END 2024-04-26 07:38 | disposition home or self-care (01) ==
LOC: DI 07:37
PROVIDERS: ATTEND Obstetrics & Gynecology
DX: Z34.01 Encounter for supervision of normal first pregnancy, first trimester (principal)

== ENCOUNTER 2024-05-19 08:00 | Outpatient (CLI) | payer OTHER ==
[2024-05-19 17:47] LABS: CHLAMYDIA TRACHOMATIS DNA NEGATIVE (NEGATIVE); NEISSERIA GONORRHOEAE DNA NEGATIVE (NEGATIVE); TRICHOMONAS VAGINALIS DNA NEGATIVE (NEGATIVE)
== END 2024-05-19 23:59 | disposition home or self-care (01) ==
LOC: LAB.WC 08:00
PROVIDERS: ATTEND Obstetrics & Gynecology
DX: Z11.3 Encounter for screening for infections with a predominantly sexual mode of transmission (principal)
CPT/HCPCS: 87491; 87591; 87661

== ENCOUNTER 2024-06-15 11:47 | Outpatient (CLI) | payer OTHER ==
[2024-06-15 12:19] LABS: BASOPHILS % (AUTO) 0.4 %; EOSINOPHILS # (AUTO) 0.1 10^3/uL (0.0-0.7); EOSINOPHILS % (AUTO) 0.9 %; HCT - HEMATOCRIT 36.1 % (37.0-47.0); LYMPHOCYTES # (AUTO) 0.9 10^3/uL (1.5-3.5); LYMPHOCYTES % (AUTO) 10.5 %; MEAN CORPUSCULAR HEMOGLOBIN 30.8 pg (27.0-31.0); MEAN CORPUSCULAR HGB CONC 33.2 g/dL (32.0-36.0); MEAN CORPUSCULAR VOLUME 92.8 fL (81.0-99.0); MEAN PLATELET VOLUME 11.8 fL (7.9-10.8); MONOCYTES # (AUTO) 0.4 10^3/uL (0.0-1.0); MONOCYTES % (AUTO) 5.3 %; NEUTROPHILS # (AUTO) 6.7 10^3/uL (1.5-6.6); NEUTROPHILS % (AUTO) 82.5 %; PLT - PLATELET COUNT 222 10^3/uL (130-450); RED BLOOD COUNT 3.89 10^6/uL (4.20-5.40); RED CELL DISTRIBUTION WIDTH 13.1 % (12.0-15.0); WHITE BLOOD COUNT 8.1 x10^3/uL (4.8-10.8)
[2024-06-15 12:27] LABS: ALBUMIN 4.1 g/dL (3.2-5.5); ALBUMIN/GLOBULIN RATIO 1.4 (1.0-2.2); BILIRUBIN,TOTAL 0.2 mg/dL (0.2-1.0); CALCIUM 9.7 mg/dL (8.5-10.3); CREATININE 0.5 mg/dL (0.6-1.3); POTASSIUM 3.5 mmol/L (3.5-4.5)
[2024-06-15 13:33] LABS: ESTIMATED AVERAGE GLUCOSE 88 mg/dL (70-100); HEMOGLOBIN A1c% 4.7 % (4.27-6.07)
[2024-06-16 05:13] LABS: HBsAG SCREEN Negative (Negative); HIV SCREEN 4TH GENERATION Non Reactive (Non Reactive); RPR Non Reactive (Non Reactive)
[2024-06-16 09:10] LABS: VARICELLA-ZOSTER AB IGG 977 index (Immune >165)
== END 2024-06-15 11:48 | disposition home or self-care (01) ==
LOC: LAB 11:47
PROVIDERS: ATTEND Obstetrics & Gynecology
DX: O09.511 Supervision of elderly primigravida, first trimester (principal); R30.0 Dysuria; Z36.89 Encounter for other specified antenatal screening
CPT/HCPCS: 36415; 80053; 83036; 85025; 86592; 86762; 86787; 86803; 86850; 86900; 86901; 87086; 87340; 87389